=== PATIENT | male | born 2005 | race Caucasian/White ===

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

== ENCOUNTER 2024-05-04 21:12 | Emergency (ER) | payer OTHER ==
[~2024-05-04] VITALS: Ht 182.9 cm; Wt 70.0 kg
[~2024-05-04 21:12] MED LIST changes: +CARAFATE1 GM PO; +PENICILLIN V P500 MG PO; +PROTONIX40 MG PO
--- OUTSIDE RECORDS SUMMARY | 2024-05-04 21:19 | XMS ---
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 - Patient eloped before treatment completed. - Patient with suicidal and/or homicidal ideations eloped. Details: Patient LWOB.
[2024-05-04] MEDS ORDERED: KETOROLAC TROMETHAMINE 30 MG/ML VIAL IM ONE (21:45)
[2024-05-04] MEDS ORDERED: CYCLOBENZAPRINE10 MG PO (23:04)
[2024-05-04] MEDS ORDERED: CYCLOBENZAPRINE HCL 10 MG HOME.PACK PO ONE (23:15)
[2024-05-04 23:32] VITALS: BP 109/70
== END 2024-05-04 23:33 | disposition home or self-care (01) ==
LOC: ED 21:12
DX: S20.211A Contusion of right front wall of thorax, initial encounter (principal); W09.1XXA Fall from playground swing, initial encounter
CPT/HCPCS: 71101; J1885

== ENCOUNTER 2024-05-06 10:53 | Emergency (ER) | payer OTHER ==
[~2024-05-06] VITALS: Ht 182.9 cm; Wt 65.8 kg
[~2024-05-06 10:53] MED LIST changes: +CYCLOBENZAPRINE10 MG PO
--- OUTSIDE RECORDS SUMMARY | 2024-05-06 10:59 | XMS ---
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 - Patient eloped before treatment completed. - Patient with suicidal and/or homicidal ideations eloped. Details: Patient LWOB.
[2024-05-06] MEDS ORDERED: ONDANSETRON 4 MG TAB ODT SL ONE (12:00)
[2024-05-06] MEDS ORDERED: HYDROCODONE/ACETA 5/325 TAB PO ONE (12:00)
[2024-05-06] MEDS ORDERED: HYDROCODON-ACE1 EA10 PO (12:13)
[2024-05-06] MEDS ORDERED: ONDANSETRON ODT8 MG PO (12:13)
[2024-05-06 12:59] VITALS: BP 124/80
--- NOTE | 2024-05-06 15:10 | EKG ---
[facility] [address] [place] [address] Signed Normal sinus rhythm with sinus arrhythmia Rightward axis Borderline ECG No previous ECGs available Confirmed by Tunde Groves ([id number]) on 05/06/2024 3:10:17 PM Electronically Signed By: TUNDE GROVES MD 05/06/24 1510 PATIENT NAME: ERIK LOVE Electrocardiogram DATE OF : [birth year] PHYSICIAN: TUNDE GROVES MD REPORT #: [id number] REPORT IS CONFIDENTIAL AND NOT TO BE RELEASED WITHOUT AUTHORIZATION
== END 2024-05-06 13:01 | disposition home or self-care (01) ==
LOC: ED 10:53
DX: S20.211A Contusion of right front wall of thorax, initial encounter (principal); W09.1XXA Fall from playground swing, initial encounter
CPT/HCPCS: 93005; 93010; A9270